=== PATIENT | male | born 2000 | race Caucasian/White ===

== ENCOUNTER 2020-06-05 17:37 | Emergency (ER) | payer OTHER ==
[2020-06-05 18:16] LABS: MUDS CUTOFF CONCENTRATIONS CUTOFF CONC BELOW:
[2020-06-05 18:19] LABS: BASOPHILS % (AUTO) 0.4 %; EOSINOPHILS # (AUTO) 0.1 10^3/uL (0.0-0.7); EOSINOPHILS % (AUTO) 0.8 %; LYMPHOCYTES # (AUTO) 2.4 10^3/uL (1.5-3.5); LYMPHOCYTES % (AUTO) 23.6 %; MEAN CORPUSCULAR HEMOGLOBIN 28.2 pg (27.0-31.0); MEAN CORPUSCULAR VOLUME 85.5 fL (80.0-94.0); MEAN PLATELET VOLUME 10.5 fL (7.4-11.4); MONOCYTES # (AUTO) 0.6 10^3/uL (0.0-1.0); MONOCYTES % (AUTO) 5.7 %; NEUTROPHILS # (AUTO) 7.1 10^3/uL (1.5-6.6); NEUTROPHILS % (AUTO) 68.9 %; PLT - PLATELET COUNT 229 10^3/uL (130-450); RED BLOOD COUNT 5.31 10^6/uL (4.70-6.10); RED CELL DISTRIBUTION WIDTH 12.8 % (12.0-15.0); WHITE BLOOD COUNT 10.3 x10^3/uL (4.8-10.8)
--- NOTE | 2020-06-05 18:20 | ED Physician Documentation ---
PD HPI CHEST PAIN - Stated complaint Stated Complaint: CP, LIGHTHEADED - Chief complaint Chief Complaint: Cardiac - History obtained from History obtained from: Patient - Additional information Additional information: Previously healthy 19-year-old gentleman has had waxing and waning left anterior chest pressure for the last week. It is worse at night. He does not notice it when he exercises, and he did exercise heavily by taking a 4 mile hike yesterday without any symptoms during that. He has no history of heart disease. No close family members with heart or coronary disease. No recent travel. No calf pain or pedal edema. No shortness of breath. He does drink a lot of caffeine but has been cutting back lately. Review of Systems Ten Systems: 10 systems reviewed and negative Constitutional: denies: Fever, Chills, Fatigue Respiratory: denies: Dyspnea, Cough GI: denies: Abdominal Pain, Abdominal Swelling, Nausea, Vomiting PD PAST MEDICAL HISTORY - Allergies Allergies/Adverse Reactions: Allergies Allergy/AdvReac Type Severity Reaction Status Date / Time No Known Drug Allergies Allergy Verified 06/05/20 18:55 PD ED PE NORMAL - Vitals Vital signs reviewed: Yes - General General: Alert and oriented X 3, No acute distress - HEENT HEENT: PERRL, EOMI - Neck Neck: Supple, no meningeal sign, No bony TTP - Cardiac Cardiac: RRR, No murmur - Respiratory Respiratory: No respiratory distress, Clear bilaterally - Abdomen Abdomen: Normal bowel sounds, Soft, Non tender - Back Back: No CVA TTP, No spinal TTP - Derm Derm: Normal color, Warm and dry - Extremities Extremities: No edema, No calf tenderness / cord - Neuro Neuro: Alert and oriented X 3, Normal speech - Psych Psych: Normal mood, Normal affect Results - Vitals Vitals: Vital Signs - 24 hr 06/05/20 06/05/20 17:43 19:21 Temperature 37.2 C Heart Rate 90 72 Respiratory 18 18 Rate Blood Pressure 143/88 H 123/92 H O2 Saturation 100 99 Oxygen O2 Source Room air - EKG (time done) 1748 Rate: Rate (enter#) (89) Rhythm: NSR (With PAC) [place]: Normal Intervals: Normal TN Ischemia: Non specific changes Computer interpretation: Agree with computer - Labs Labs: Laboratory Tests 07/06/20 07/06/20 07/06/20 18:06 18:11 18:11 WBC 10.3 RBC 5.31 Hgb 15.0 Hct 45.4 MCV 85.5 MCH 28.2 MCHC 33.0 RDW 12.8 Plt Count 229 MPV 10.5 Neut # (Auto) 7.1 H Lymph # (Auto) 2.4 Campbell # (Auto) 0.6 Eos # (Auto) 0.1 Baso # (Auto) 0.0 Absolute Nucleated RBC 0.00 Nucleated RBC % 0.0 Sodium 139 Potassium 3.3 L Chloride 100 L Carbon Dioxide 29 Anion Gap 10.0 BUN 12 Creatinine 1.0 Estimated GFR (MDRD) 96 Glucose 100 Calcium 9.4 Total Bilirubin 0.7 AST 19 ALT 31 Alkaline Phosphatase 73 Troponin I High Sens Total Protein 7.6 Albumin 5.3 Globulin 2.3 Albumin/Globulin Ratio 2.3 H Lipase 25 Urine Opiates Screen NEGATIVE Ur Oxycodone Screen NEGATIVE Urine Methadone Screen NEGATIVE Ur Propoxyphene Screen NEGATIVE Ur Barbiturates Screen NEGATIVE Ur Tricyclics Screen NEGATIVE Ur Phencyclidine Scrn NEGATIVE Ur Amphetamine Screen NEGATIVE U Methamphetamines Scrn NEGATIVE U Benzodiazepines Scrn NEGATIVE Urine Cocaine Screen NEGATIVE U Cannabinoids Screen NEGATIVE 06/05/20 18:11 WBC RBC Hgb Hct MCV MCH MCHC RDW Plt Count MPV Neut # (Auto) Lymph # (Auto) Campbell # (Auto) Eos # (Auto) Baso # (Auto) Absolute Nucleated RBC Nucleated RBC % Sodium Potassium Chloride Carbon Dioxide Anion Gap BUN Creatinine Estimated GFR (MDRD) Glucose Calcium Total Bilirubin AST ALT Alkaline Phosphatase Troponin I High Sens < 2.3 L Total Protein Albumin Globulin Albumin/Globulin Ratio Lipase Urine Opiates Screen Ur Oxycodone Screen Urine Methadone Screen Ur Propoxyphene Screen Ur Barbiturates Screen Ur Tricyclics Screen Ur Phencyclidine Scrn Ur Amphetamine Screen U Methamphetamines Scrn U Benzodiazepines Scrn Urine Cocaine Screen U Cannabinoids Screen - Rads (name of study) 2v cxr Radiology: EMP read contemporaneously (normal) PD MEDICAL DECISION MAKING - ED course ED course: heart zero perc neg 19-year-old with very atypical Chest pain. Nonexertional. Some PACs on the monitor. Could be related to caffeine plus or minus mild hypokalemia which was repleted orally. Departure - Departure Disposition: 01 Home, Self Care Clinical Impression: Atypical chest pain Condition: Good Record reviewed to determine appropriate education?: Yes Instructions: ED Chest Pain Atypical Unkn Cause Comments: You were seen today for what we call atypical chest pain meaning it does not have the classic characteristics of being from your heart. Your heart testing was negative except for some early beats, which is probably due to a combination of caffeine use and a low potassium. We did give you a potassium pill here. Return if worse and follow-up with your primary care physician, next billable appointment.
[2020-06-05 18:36] LABS: AMPHETAMINE SCREEN,URINE NEGATIVE (NEGATIVE); BENZODIAZEPINES SCREEN, URINE NEGATIVE (NEGATIVE); COCAINE SCREEN URINE NEGATIVE (NEGATIVE); METHADONE SCREEN, URINE NEGATIVE (NEGATIVE); METHAMPHETAMINES SCREEN, URINE NEGATIVE (NEGATIVE); OPIATE SCREEN, URINE NEGATIVE (NEGATIVE); OXYCODONE SCREEN, URINE NEGATIVE (NEGATIVE); PROPOXYPHENE SCREEN, URINE NEGATIVE (NEGATIVE); TRICYCLIC ANTIDEPRESSANT,URINE NEGATIVE (NEGATIVE)
[2020-06-05 18:36] LABS: ALBUMIN 5.3 g/dL (3.2-5.5); ALBUMIN/GLOBULIN RATIO 2.3 (1.0-2.2); BILIRUBIN,TOTAL 0.7 mg/dL (0.2-1.0); CALCIUM 9.4 mg/dL (8.5-10.3); TOTAL PROTEIN 7.6 g/dL (6.7-8.2)
[2020-06-05] MEDS ORDERED: POTASSIUM CHLORIDE 20 MEQ TABLET PO STA (18:51)
--- NOTE | 2020-06-05 18:59 | XRAY Report ---
PROCEDURE: Chest 2 View X-Ray INDICATIONS: cp TECHNIQUE: 2 view(s) of the chest. COMPARISON: None. FINDINGS: Surgical changes and devices: None. Lungs and pleura: No pleural effusions or pneumothorax. Lungs are clear. Mediastinum: Mediastinal contours are normal. Heart size is normal. Bones and chest wall: No suspicious bony abnormalities. Soft tissues appear unremarkable. IMPRESSION: Source of chest pain is not seen. The study appears normal for age. Reviewed by: John Bradford MD on 06/05/2020 6:58 PM PDT Approved by: John Bradford MD on 06/05/2020 6:58 PM PDT Station ID: [id number]
[2020-06-05 19:22] VITALS: BP 123/92
== END 2020-06-05 19:29 | disposition home or self-care (01) ==
LOC: ED 17:37
DX: R07.89 Other chest pain (principal); E87.6 Hypokalemia; I49.1 Atrial premature depolarization
CPT/HCPCS: 36415; 71046; 80053; 80306; 83690; 84484; 85025; 93005; 99284; A9270

== ENCOUNTER 2020-07-12 11:57 | Outpatient (CLI) | payer OTHER ==
[2020-07-12 18:47] LABS: CALCIUM 9.6 mg/dL (8.5-10.3)
== END 2020-07-12 23:57 | disposition home or self-care (01) ==
LOC: LAB.WCP 11:57
PROVIDERS: ATTEND Nurse Practitioner Family
DX: E87.6 Hypokalemia (principal)
CPT/HCPCS: 36415; 80048